=== PATIENT | male | born 1950 | race Caucasian/White ===

== ENCOUNTER → 2018-02-24 | Outpatient (CLI) | payer MEDICARE, OTHER ==
[~2018-02-24] MED LIST: ASPI-870 PO; ATEN-1 PO; ATOR40TA24 PO; AZIT-17 PO; CHLOR25 PO; METF-411 PO; METF-421 PO; PNEI IJ; QUIN10TA PO; QUIN20TA43 PO; QUIN40TA37 PO; TADA20TA33 PO; TADA5TAB7 PO
[2018-02-24 11:59] LABS: PLATELET COUNT, AUTOMATED 272 K/uL (150-450)
== END ==
LOC: LAB 11:24
PROVIDERS: ATTEND Internal Medicine
DX: E78.00 Pure hypercholesterolemia, unspecified (principal); I10 Essential (primary) hypertension; N52.9 Male erectile dysfunction, unspecified
CPT/HCPCS: 36415; 81001; 82043; 85025